=== PATIENT | male | born 1960 | race Caucasian/White ===

== ENCOUNTER 2025-01-13 07:04 | Emergency (ER) | payer OTHER, SELFPAY ==
--- NOTE | ~2025-01-13 | CT_ITS ---
EXAMINATION: CT lumbar spine wo con DATE: 01/13/2025 08:39 INDICATION: Low back pain TECHNIQUE: Computed tomography (CT) of the lumbar spine was performed without intravenous contrast. A utomated exposure control and iterative reconstruction technique were employed. The dose-length produ ct was 1364.70 mGy-cm. COMPARISON: None FINDINGS: Minimal lower lumbar levocurvature. 4 mm retrolisthesis L5 on S1. 2-3 mm anterolisthesis L3 on L4. Ve rtebral body heights are normal. No fracture. Severe disc height loss at L4-L5 and L5-S1 and mild dis c height loss at L3-L4. Paravertebral soft tissues are unremarkable. The following disc levels are sp ecifically discussed: T12-L1: The disc does not extend beyond the endplate margin. There is mild bilateral facet joint oste oarthritis. There is no neural foraminal stenosis. There is no central canal stenosis. L1-L2: Small left foraminal zone disc protrusion. There is mild left and mild to moderate right facet joint osteoarthritis. There is mild left neural foraminal stenosis. There is no central canal stenos is. L2-L3: Disc is mildly bulging. There is mild to moderate left and moderate right facet joint osteoart hritis. There is mild right and mild to moderate left neural foraminal stenosis. There is mild centra l canal stenosis. L3-L4: Disc is bulging. There is severe bilateral facet joint osteoarthritis. There is moderate bilat eral neural foraminal stenosis. There is mild to moderate central canal stenosis. L4-L5: Disc is bulging. There is mild to moderate bilateral facet joint osteoarthritis. There is mode rate right and mild to moderate left neural foraminal stenosis. There is mild central canal stenosis. L5-S1: Disc is bulging. There is mild to moderate right and moderate to severe left facet joint osteo arthritis. There is moderate bilateral neural foraminal stenosis. There is no central canal stenosis. IMPRESSION: 1. Severe lower lumbar spondylosis with no acute osseous adenopathy. Reviewed, dictated and finalized at location A.
--- OUTSIDE RECORDS SUMMARY | 2025-01-13 07:06 | XMS_ITS | Clinical Summary ---
Author Organization [facility] Address [address] [place] [id number] Care Team Providers Care Hand Shaker Name Role Phone Heath Muahmmad MD Primary Care Provider [phone]- [phone] Allergies No known active allergies Medications hydroCHLOROthiazi de 25 mg tablet Take 25 mg by mouth daily. 06/18/19 21 Active losartan (COZAAR) 100 mg tablet Take 100 mg by mouth daily. Active ezetimibe (Zetia) 10 mg tablet Take 10 mg by mouth daily. Active celecoxib (CeleBREX) 200 mg capsuleIndication s:Rheumatoid arthritis involving multiple sites with positive rheumatoid factor (CMS/HCC) Take 1 Capsule (200 mg) by mouth 2 times daily as needed for Pain. 180 Capsule 1 05/26/20 22 Active folic acid (FOLVITE) 1 mg tabletIndications :Rheumatoid arthritis involving multiple sites with positive rheumatoid factor (CMS/HCC) Take 1 Tablet (1 mg) by mouth daily. 90 Tablet 1 05/26/20 22 Active methotrexate (RHEUMATREX) 2.5 mg TabletIndications :Rheumatoid arthritis involving multiple sites with positive rheumatoid factor (CMS/HCC) Take 8 Tablets (20 mg) by mouth every 7 days. 104 Tablet 1 05/26/20 22 Active predniSONE (DELTASONE) 5 mg tabletIndications :Rheumatoid arthritis involving multiple sites with positive rheumatoid factor (CMS/HCC) Take 1 Tablet (5 mg) by mouth daily with breakfast. 90 Tablet 1 05/26/20 22 Active etanercept (EnbreL Mini) 50 mg/mL (1 mL) CartridgeIndicati ons:Rheumatoid arthritis involving multiple sites with positive rheumatoid factor (CMS/HCC),Cyclic citrullinated peptide (CCP) antibody positive Inject 50 mg by subcutaneous injection every 7 days. 4 mL 6 05/26/20 22 Active methylPREDNISolon e (MEDROL DOSPACK) 4 mg Tablets, Dose PackIndications:R heumatoid arthritis involving multiple sites with positive rheumatoid factor (CMS/HCC) Take pills for each day in the morning with breakfast. Take if having an RA flare. 21 Tablet 05/26/20 22 Active Active Problems Problem Noted Date Diagnosed Date Rheumatoid arthritis involvi ng multiple sites with positive rheumatoid factor 11/05/2020 Cyclic citrullinated peptide (CCP) antibody posi tive 11/05/2020 Social History Tobacco Use Types Packs/Day Years Used Date Smoking Tobacco: Former Smokeless Tobacco: Never Tobacco Cessation:Counseling Given: Not Answered Alcohol Use Standard Drinks/Week Comments Yes 0 (1 standard drink = 0.6 oz pur e alcohol) Sex and Gender Information Value Date Recorded Sex Assigned at Not on file Legal Sex Male 11:17 AM CDT Gender Identity Not on file Sexual Orientation Not on file Last Filed Vital Signs Vital Sign Reading Time Taken Comments Blood Pressure 140/76 05/26/2022 2:16 PM CHECKER Pulse - - Temperature - - Respiratory Rate 18 06/17/2021 2:10 PM CHECKER Oxygen Saturation 98% 06/17/2021 2:10 PM CHECKER Inhaled Oxygen Concentration - - Weight 115.2 kg (254 lb) 05/26/2022 2:16 PM CHECKER Height 190.5 cm (6' 3) 05/26/2022 2:16 PM CHECKER Body Mass Index 31.75 05/26/2022 2:16 PM CHECKER Plan of Treatment Health Maintenance Due Date Last Done Comments DTAP/TDAP/TD VACCINES (1 - Tdap) 1977 COLORECTAL SCREENING 2003 Colorectal Cancer Screening 2003 FIT-DNA Q 3 years 2003 FIT/FOBT Q 1 year 2003 Flex Sig/CT Colonography Q 5 years 2003 PNEUMOCOCCAL VACCINE 50+ YEARS (1 of 1 - PCV) 02/29/20 08 ZOSTER VACCINE (1 of 2) 02/29/2008 INFLUENZA VACCINE (#1) 2025 RSV VACCINE (60+ or ) (1 - 1-dose 75+ series) 2033 Insurance [facility] OPTIONS PPO [id number] RX [facility] [employer] Care Teams Hand Shaker Relationship Specialty Start Date End Date Heath Muhammad MD [address] [place] [id number] PCP - General Family Practice 03/12/20
--- OUTSIDE RECORDS SUMMARY | 2025-01-13 07:06 | XMS_ITS | Patient Health Record ---
Author Organization [facility] Address [address] [place], [place] [id number] Support Name Relationship Address Phone BRITNEY SÁNCHEZ Guarantor Unknown [phone] Reason For Referral No Information Plan Of Treatment No Information Insurance Providers Payer Name Payer Address Payer Phone Subscriber Number Group Number Insured Name Patient Relationship to Insured Coverage Start Date Coverage End Date [facility] [address] [address] [place] [id number] BRITNEY SÁNCHEZ Self - patient is the insured
[2025-01-13 07:11] VITALS: BP 189/79; PULSE 75; RESP 16; TEMP 36.6; O2SAT 100
--- NOTE | 2025-01-13 07:54 | ED_ITS ---
HPI - Extremity Injury (Lower) General Chief Complaint: Extremity Injury, Lower Stated Complaint: sciatic pain left butt down left leg Time Seen by Provider: 01/13/25 07:53 Source: patient and family Mode of arrival: ambulatory Limitations: no limitations History of Present Illness HPI Narrative: Left lower back dull aching pain radiating to left lower extremity down below the knee. Aggravated with certain position and movement, probably better at certain position. History of right sciatica. Patient started playing golf recently, denies any trauma, fever, chills, nausea, vomiting, Patient denies bowel dysfunction, bladder dysfunction, altered sensation, focal weakness, or saddle numbness, Related Data Home Medications ?Medication ?Instructions ?Recorded ?Confirmed ?Last Taken ?Type celecoxib 200 mg capsule (Celebrex) 200 mg PO DAILY 09/28/23 09/28/23 Unknown History ezetimibe 10 mg tablet 10 mg PO DAILY 09/28/23 09/28/23 Unknown History hydrochlorothiazide 25 mg tablet 25 mg PO DAILY 09/28/23 09/28/23 Unknown History losartan 100 mg tablet 100 mg PO DAILY 09/28/23 09/28/23 Unknown History nortriptyline 10 mg capsule 10 mg PO DAILY 09/28/23 09/28/23 Unknown History prednisone 5 mg tablet 5 mg PO DAILY 09/28/23 09/28/23 Unknown History rosuvastatin 5 mg tablet 5 mg PO DAILY 09/28/23 09/28/23 Unknown History Allergies Allergy/AdvReac Type Severity Reaction Status Date / Time No Known Allergies Allergy Verified 01/13/25 07:18 Review of Systems Review of Systems: All systems reviewed & are unremarkable except as noted in HPI and below PMFSH Past Medical History Medical History Encounter for medication management Counseling on health promotion and disease prevention Generalized osteoarthritis of multiple sites Rheumatoid arthritis with rheumatoid factor of multiple sites without organ or systems involvement CAD (coronary artery disease) Arthritis Surgical History Surgical History No pertinent past surgical history Family History Family History Other Heart disease Hypertension Social History Social History Smoking status: Former smoker Alcohol intake: current Substance use: never Substance use type: does not use Do You Feel Safe in your Home?: Yes Lack of Transportation: No Lack of Food: Never True Current Housing: I Have Housing Concerned About Future Housing: No Difficulty Paying Gas/Electric Bills: No Difficulty Paying for Meds: No Currently Unemployed: No Education: Decline to Answer Difficulty w/ Childcare or Family Care: No Living arrangements: with family Exam Narrative: General appearance: Well-developed, well-nourished Skin: Normal color Head: Normocephalic, nontraumatic Eyes: Clear conjunctiva ENT: Oropharynx normal, ears normal, nose normal Neck: Supple, nontender Chest and respiratory: Airway patent, no respiratory distress, no accessory muscle use Heart: Regular rate/rhythm Abdomen: Soft, nontender, no organomegaly, quiet bowel sounds Vascular: Normal peripheral pulses, normal capillary refill. Musculoskeletal: Normal range of motion, nontender back Neurologic: Alert and oriented ?3, positive left leg straight test, no motor deficit Course Vital Signs Vital signs: Vital Signs Temperature 36.6 C 01/13/25 07:11 Pulse Rate 75 01/13/25 07:11 Respiratory Rate 16 01/13/25 07:11 Blood Pressure 189/79 H 01/13/25 07:11 Pulse Oximetry 100 01/13/25 07:11 Temperature 36.6 C 01/13/25 07:11 Pulse Rate 75 01/13/25 07:11 Respiratory Rate 16 01/13/25 07:11 Blood Pressure 189/79 H 01/13/25 07:11 Pulse Oximetry 100 01/13/25 07:11 MDM - Extremity Injury (Lower) MDM Narrative Medical decision making narrative: Sciatica is my concern Patient received Decadron, Dilaudid and Zofran prior to discharge on Decadron. Differential Diagnosis Differential diagnosis: Likely other (Sciatica, musculoskeletal pain) Imaging Data Radiologist's impression: Impressions Lumbar Spine CT 01/13/25 08:48 IMPRESSION: 1. Severe lower lumbar spondylosis with no acute osseous adenopathy. Critical Care Time Critical Care Time Critical Care Time: No Discharge Plan Discharge Clinical Impression: Acute left lumbar radiculopathy Patient Disposition: Home Condition: Improved Instructions: Lumbar Radiculopathy (ED), Lower Back Exercises (ED) Additional Instructions: Return if symptoms are worsening , call your family physician for appointment, take Tylenol as as needed for aches and pain, continue home medications. Patient Language: Luxembourgish Prescriptions: New dexamethasone 4 mg tablet 4 mg PO Q8H Qty: 15 0RF No Action celecoxib [Celebrex] 200 mg capsule 200 mg PO DAILY prednisone 5 mg tablet 5 mg PO DAILY ezetimibe 10 mg tablet 10 mg PO DAILY hydrochlorothiazide 25 mg tablet 25 mg PO DAILY nortriptyline 10 mg capsule 10 mg PO DAILY rosuvastatin 5 mg tablet 5 mg PO DAILY losartan 100 mg tablet 100 mg PO DAILY folic acid 1 mg tablet 1 mg PO DAILY Qty: 90 1RF methotrexate sodium 2.5 mg tablet 20 mg PO WEEKLY Qty: 32 5RF hydroxychloroquine [Plaquenil] 200 mg tablet 400 mg PO DAILY Qty: 180 1RF Follow-up/Referrals: Sabina,Heath Espana MD [Primary Care Provider] -
--- OUTSIDE RECORDS SUMMARY | 2025-01-13 08:53 | XMS_ITS | Clinical Summary ---
Author Organization [facility] Address [address] [place] [address] Care Team Providers Care Securities Teller Name Role Phone Heath Muhammad MD Primary Care Provider [phone]- [phone] Social History Tobacco Use Types Packs/Day Years Used Date Smoking Tobacco: Never Assessed Sex and Gender Information Value Date Recorded Sex Assigned at Not on file Legal Sex Male 7:43 PM CDT Gender Identity Not on file Sexual Orientation Not on file Plan of Treatment Health Maintenance Due Date Last Done Comments Colorectal Cancer Screening Colonoscopy (10 Years) 1958 Hepatitis C 02/29/1976 Zoster Vaccines (1 of 2) 02/29/2008 Annual Medicare Wellness Visit 2023 COVID-19 Vaccine (2023-2 5 season) 2024 05/01/2021, 08/24/2020, 08/03/2020 PHQ-2 (Physician [place]) 06/07/2024 DTaP, Tdap and Td Vaccines ( 2 - Td or Tdap) 04/01/2025 04/01/2015 RSV Immunization or 60+ Years (1 - 1-dose 75+ series) 2033 Pneumococcal Vaccine: 50+ Years Completed 04/02/2023 Meningococcal B Vaccine Aged Out No l onger eligible based on patient's age to complete this topic Meningococcal Vaccine Aged Out No nando luisa eligible based on patient's age to complete this topic RSV Immunizations Under 20 Months Aged Out No longer eligible b ased on patient's age to complete this topic Insurance [facility] Care Teams Securities Teller Relationship Specialty Start Date End Date Heath Muhammad MD [address] [place] [address] [place] [address] PCP - General 01/30/16
--- OUTSIDE RECORDS SUMMARY | 2025-01-13 08:53 | XMS_ITS | Clinical Summary ---
Author Organization [facility] Address [address] [place] [phone] Care Team Providers Care Electrician Research Name Role Phone Heath Muhammad MD Primary Care Provider +1- [phone] Allergies No known active allergies Medications hydroCHLOROthiazi [...] Comments Blood Pressure 140/76 05/26/2022 2:16 PM CANDY ROLLING MACHINE OPERATOR Pulse - - Temperature - - Respiratory Rate 18 06/17/2021 2:10 PM CANDY ROLLING MACHINE OPERATOR Oxygen Saturation 98% 06/17/2021 2:10 PM CANDY ROLLING MACHINE OPERATOR Inhaled Oxygen Concentration - - Weight 115.2 kg (254 lb) 05/26/2022 2:16 PM CANDY ROLLING MACHINE OPERATOR Height 190.5 cm (6' 3) 05/26/2022 2:16 PM CANDY ROLLING MACHINE OPERATOR Body Mass Index 31.75 05/26/2022 2:16 PM CANDY ROLLING MACHINE OPERATOR Plan of Treatment Health Maintenance Due Date [...] (1 - 1-dose 75+ series) 2033 Insurance [facility] OPTIONS PPO [id number] RX [facility] Care Teams Electrician Research Relationship Specialty Start Date End Date Heath Muhammad MD [address] [place] [phone] PCP - General Family Practice 03/12/20
[2025-01-13] MEDS: dexAMETHasone SOD PHOS INJ 10 MG/ML 1 ML VIAL IM (09:03)
[2025-01-13] MEDS: HYDROmorphone HCL INJ (*CRX) 2 MG/ML VIAL 1 MG IM (09:03)
[2025-01-13] MEDS: ONDANSETRON HCL ODT 4 MG TABLET PO (09:04)
[2025-01-13 09:36] VITALS: BP 148/72; PULSE 63; RESP 18; O2SAT 100
== END 2025-01-13 09:38 | disposition home or self-care (01) ==
PROVIDERS: Emergency Provider Emergency Medicine; PCP Family Medicine
DX: M54.16 Radiculopathy, lumbar region (principal); I25.10 Atherosclerotic heart disease of native coronary artery without angina pectoris; M06.9 Rheumatoid arthritis, unspecified; Z87.891 Personal history of nicotine dependence
CPT/HCPCS: 72131; 96372; 99284; A9270; J1100; J1171